=== PATIENT | female | born 1935 | race Caucasian/White ===

== ENCOUNTER 2021-04-28 18:46 | Inpatient (IN) | payer MEDICARE ==
[2021-04-28] MEDS ORDERED: Guaifenesin DM 100-10/5 ML UDCUP PO PRN (19:22)
[2021-04-28] MEDS ORDERED: Senokot S 8.6-50 MG TAB PO PRN (19:22)
[2021-04-28] MEDS ORDERED: Calcium Carbonate 500 MG ChewTAB PO PRN (19:22)
[2021-04-28] MEDS ORDERED: Ondansetron PF 4 MG/2 ML Vial IVP PRN (19:22)
[2021-04-28] MEDS: Famotidine 20 MG TAB PO SCH (21:33)
[2021-04-28] MEDS: Cholecalciferol 1,000 UNITS (25 MCG) TAB PO SCH (21:33)
[2021-04-28] MEDS: Sodium Chloride 0.9% 1,000 ML IV SCH (21:33)
[2021-04-29 04:41] LABS: #Basophils 0.1 10x3/uL (0.0-0.2); #Eosinphils 0.1 10x3/uL (0.0-0.5); #Monocytes 0.6 10x3/uL (0.0-1.1); #Neutrophils 5.8 10x3/uL (1.5-8.4); %Basophils 0.6 % (0.0-2.0); %Eosinophils 1.4 % (0.0-6.0); %Lymphocytes 24.7 % (18.0-47.0); %Monocytes 6.7 % (0.0-10.0); %Neutrophils 66.3 % (40.0-75.0); Hemoglobin 9.7 g/dL (12.0-15.5); Mean Corpuscular HGB CONC 31.6 g/dL (32.0-36.0); Mean Corpuscular Hemoglobin 30.4 pg (27.0-33.0); Mean Corpuscular Volume 96.2 fl (81.6-98.3); Mean Platelet Volume 10.6 fl (7.4-10.4); Platelet Count 261 10x3/uL (150-450); RBC Distribution Width 14.8 % (11.5-14.5); Red Blood Cell (RBC) Count 3.19 10x6/uL (3.90-5.03); White Blood Cell (WBC) Count 8.8 10x3/uL (3.5-10.5)
[2021-04-29 04:45] LABS: Anion Gap 11 mmol/L (10-20); BUN (Urea Nitrogen) 18 mg/dL (9.8-20.1); Calc. Creatinine Clearance 49 mL/min (70-130); Calcium 8.2 mg/dL (7.8-10.44); Carbon Dioxide 24 mmol/L (23-31); Chloride 106 mmol/L (98-107); Glucose 80 mg/dL (83-110); Potassium 3.5 mmol/L (3.5-5.1); Sodium 137 mmol/L (136-145)
[2021-04-29] MEDS: Dronabinol 2.5 MG CAP PO SCH ×2 (07:18→18:24)
[2021-04-29] MEDS: Sodium Chloride 0.9% 1,000 ML IV SCH ×2 (07:18→18:25)
[2021-04-29] MEDS: cefTRIAXone\\ROCEPHIN 1 GM in Sodium Chloride 0.9% 100 ML IVPB SCH (10:40)
[2021-04-29] MEDS: Enoxaparin Sodium 40 MG/0.4 ML SYRINGE SC SCH (10:41)
[2021-04-29] MEDS: Multivitamin W/ Minerals 1 TAB PO SCH (10:41)
[2021-04-29] MEDS: predniSONE 5 MG TAB PO SCH (10:41)
[2021-04-29] MEDS: Acetaminophen 325 MG TAB PO PRN ×2 (10:42→18:24)
[2021-04-29 14:11] VITALS: BMI 23.8
[2021-04-29 14:25] LABS: Vitamin D, 25 Hydroxy 37.3 ng/ml (> 30.0)
[2021-04-29 21:31] LABS: SARS-CoV-2 PCR by NAA Not Detected (NotDetected)
[2021-04-29] MEDS: Cholecalciferol 1,000 UNITS (25 MCG) TAB PO SCH (21:52)
[2021-04-29] MEDS: Famotidine 20 MG TAB PO SCH (21:52)
[2021-04-30 07:39] LABS: ALT (SGPT) 7 U/L (8-55); AST (SGOT) 14 U/L (5-34); Albumin 2.5 g/dL (3.4-4.8); Alkaline Phosphatase 53 U/L (40-110); Anion Gap 9 mmol/L (10-20); BUN (Urea Nitrogen) 12 mg/dL (9.8-20.1); Bilirubin, Total 0.5 mg/dL (0.2-1.2); Calc. Creatinine Clearance 53 mL/min (70-130); Calcium 8.3 mg/dL (7.8-10.44); Carbon Dioxide 26 mmol/L (23-31); Chloride 104 mmol/L (98-107); Globulin 4.3 g/dL (2.4-3.5); Glucose 88 mg/dL (83-110); Magnesium 1.7 mg/dL (1.6-2.6); Phosphorus 2.5 mg/dL (2.3-4.7); Potassium 3.2 mmol/L (3.5-5.1); Protein, Total 6.8 g/dL (5.8-8.1); Sodium 136 mmol/L (136-145)
[2021-04-30 07:41] LABS: #Eosinphils 0.2 10x3/uL (0.0-0.5); #Monocytes 0.6 10x3/uL (0.0-1.1); #Neutrophils 5.9 10x3/uL (1.5-8.4); %Basophils 0.4 % (0.0-2.0); %Eosinophils 1.8 % (0.0-6.0); %Lymphocytes 26.2 % (18.0-47.0); %Monocytes 6.1 % (0.0-10.0); %Neutrophils 65.2 % (40.0-75.0); Hemoglobin 10.7 g/dL (12.0-15.5); Mean Corpuscular HGB CONC 31.8 g/dL (32.0-36.0); Mean Corpuscular Hemoglobin 30.6 pg (27.0-33.0); Mean Corpuscular Volume 96.3 fl (81.6-98.3); Mean Platelet Volume 10.5 fl (7.4-10.4); Platelet Count 267 10x3/uL (150-450); RBC Distribution Width 14.6 % (11.5-14.5)
[2021-04-30 09:20] LABS: Syphilis Antibody Nonreactive (Nonreactive); Syphilis Antibody Index 0.24 S/CO (<1.00 Non-Reactive)
[2021-04-30] MEDS: Enoxaparin Sodium 40 MG/0.4 ML SYRINGE SC SCH (09:39)
[2021-04-30] MEDS: Multivitamin W/ Minerals 1 TAB PO SCH (09:39)
[2021-04-30] MEDS: predniSONE 5 MG TAB PO SCH (09:39)
[2021-04-30] MEDS: Dronabinol 2.5 MG CAP PO SCH ×2 (09:39→16:22)
[2021-04-30] MEDS: cefTRIAXone\\ROCEPHIN 1 GM in Sodium Chloride 0.9% 100 ML IVPB SCH (09:40)
[2021-04-30] MEDS: Potassium Chloride 20 MEQ in Premix Bag 1 BAG IVPB SCH ×2 (12:06→16:22)
[2021-04-30 16:22] VITALS: BP 142/67; TEMP 99
[2021-04-30] MEDS ORDERED: Famotidine 20 MG TAB PO SCH (21:00)
== END 2021-04-30 17:30 | DRG 640 ==
LOC: CSHTELE 18:46
PROVIDERS: ADMIT Family Medicine; ATTEND Family Medicine
DX: E43 Unspecified severe protein-calorie malnutrition (principal); G93.41 Metabolic encephalopathy; N39.0 Urinary tract infection, site not specified; J84.9 Interstitial pulmonary disease, unspecified; Z20.822 Contact with and (suspected) exposure to COVID-19; I10 Essential (primary) hypertension; F03.90 Unspecified dementia, unspecified severity, without behavioral disturbance, psychotic disturbance, mood disturbance, and anxiety; K21.9 Gastro-esophageal reflux disease without esophagitis; J84.10 Pulmonary fibrosis, unspecified; F09 Unspecified mental disorder due to known physiological condition; R62.7 Adult failure to thrive; M06.9 Rheumatoid arthritis, unspecified; Z85.72 Personal history of non-Hodgkin lymphomas; Z92.21 Personal history of antineoplastic chemotherapy; Z88.2 Allergy status to sulfonamides; Z88.1 Allergy status to other antibiotic agents; Z90.49 Acquired absence of other specified parts of digestive tract; Z90.89 Acquired absence of other organs; Z90.710 Acquired absence of both cervix and uterus; Z68.23 Body mass index [BMI] 23.0-23.9, adult
CPT/HCPCS: 36415; 70450; 80048; 80053; 82306; 82607; 82746; 83735; 84100; 85025; 86780; J0696; J1650; J3480; J3490; J7050; J7512; Q0167; U0003; U0005